=== PATIENT | female | born 1960 | race Caucasian/White ===

== ENCOUNTER 2023-12-12 16:13 | Observation (INO) ==
--- NOTE | 2023-12-12 16:25 | Emergency Department Note ---
Impression & Plan Hypertension, Chest pain ED Provider Note Provider: Devin Bryson MD DATE OF SERVICE: 12/12/2023 CHIEF COMPLAINT: Chest pain, hypertension HISTORY OF PRESENT ILLNESS: Patient is a 63-year-old female history of prior cholecystectomy hysterectomy presenting here today via ambulance. Patient was driving earlier today and was in a bit of a vigorous discussion she reports.Began to experience some central chest pressure and pain from the mid chest epigastrium little bit up towards the shoulders. Did not involve the jaw neck back. No associated nausea but was little short of breath when this is occurring. Thought it might be GERD and took a Pepcid without improvement. As this persisted she pulled over and contacted 911. Presents here via ambulance. Pain evidently lasted about 15 minutes or so and resolved as EMS was arriving. Received several dose of nitroglycerin as well as aspirin around is pain-free at this time. Initial blood pressure for EMS reported be 227 systolic which has improved after the administration of nitroglycerin prior to arrival to the hospital. Patient denies significant shortness of breath, abdominal pain, nausea or vomiting, cough or cold symptoms, fever, or numbness or tingling in the extremities. No syncope or lightheadedness. No trauma reported. Patient reports she has not been to the doctor in more than a decade by report. Patient denies other chest pain but family who arrived shortly afterwards states that she has been complaining of last several days of some intermittent similar pain but this was more severe. Patient states she gets quite anxious in the hospital. Does report a family history of cardiac disease PAST MEDICAL HISTORY: As noted above MEDICATIONS: None SOCIAL HISTORY: Smoker PHYSICAL EXAM: GENERAL: alert and oriented in no acute distress on stretcher Head: normocephalic and atraumatic EYES: No injection, discharge or icterus. EOMI. NECK: Trachea midline. ENT: Mucous membranes pink and moist. LUNGS: Airway patent. No retractions. Breath sounds clear with good air entry bilaterally. HEART: Regular rate and rhythm. No chest wall tenderness ABDOMEN: Soft and non-tender, without guarding or rebound. SKIN: Acyanotic, warm, dry, without rashes EXTREMITIES: Without swelling, tenderness or deformity NEUROLOGICAL: No focal deficits. No aphasia. No facial droop or slurred speech. Ambulatory. EK bpm normal sinus rhythm. No PVC or PAC. No acute ST segment elevation with inferior and anterior T wave inversions with a QTc of 414. In comparison to previous from January 23, 2019 no longer with left bundle branch block notable. CONTINUOUS CARDIAC MONITORING: was ordered and showed a heart rate of 50s to 60s bpm in sinus bradycardia normal sinus rhythm with some PVCs and later what appears to be a change to left bundle branch block. Patient's laboratory studies and imaging reviewed. Differential includes Cardiac ischemia, aortic dissection, pulmonary embolism, pneumothorax, pneumonia, pericarditis, myocarditis, esophageal rupture, GERD, cholecystitis, pancreatitis, musculoskeletal, as well as other pathologies. IMPRESSION/MEDICAL DECISION MAKING: Pain-free upon arrival. Still hypertensive but improved from prior initial encounter with EMS in the 220s systolic by report. Patient did receive aspirin and nitroglycerin prior to arrival. Patient without significant medical care but reports a family history and is a smoker. Has several risk factors. No significant abdominal tenderness but some pain in the epigastrium to the lower chest rating to the shoulders. Concern for possible cardiac etiology obviously. EKG without STEMI but some inferior and particularly anterior T wave inversions. Troponin sent. Electrolyte chemistries TSH ordered as well. Denies significant symptoms currently and low suspicion this represents dissection or PE. She is not hypoxic or medically tachypneic. Cardiac etiology versus possible hypertensive urgency/emergency may be at play with some component of anxiety and stress as well. 1 view chest x-ray per radiology without acute findings besides some slight right hilar prominence. Patient is a smoker and will need follow-up for this to exclude mass or lymph nodes. Doubt again this represents aortic dissection. Blood work without anemia leukocytosis. No significant actually abnormal signs of renal dysfunction. No evidence of LFT abnormalities or pancreatitis based on labs. Troponin returns normal. Blood pressure in the 180s systolic. Given the relative bradycardia will give a dose of IV hydralazine. Again a very concerning story with poor follow-up options at this time and uncontrolled hypertension. Discussed with the patient and she was agreeable to stay for further workup given the chest pain and hypertensive urgency. Hospitalist team was consulted. DIAGNOSIS: Chest pain, hypertensive urgency DISPOSITION: Hospitalist will evaluate Patient was agreeable with this plan. Past Med/Surg History Problem List Chest pain (Acute) Hypertension (Acute) Unstable angina History of hysterectomy History of cholecystectomy Medical History No pertinent past medical history Social History Smoking Status: Current every day smoker Tobacco Type: Cigarettes Cigarettes Per Day: 10; Do You Dip or Chew Tobacco: No; Tobacco Cessation Education Requested by Patient: No Hx Alcohol Use: No Hx Substance Use: No Preferred Language: Wallisian Communication Ability: Effective Floodplain Manager Required: No Beliefs That Will Affect Care: None Current Living Situation: Spouse and Family Current Living Situation Comment: At home with and [id number] Other Information That Helps Us Care for You: No Feels Safe at Home: Yes Safety Concerns: Feels Safe At This Time Assistive Devices: Denture - Upper and Glasses Allergies Allergies Allergy/AdvReac Type Severity Reaction Status Date / Time No Known Allergies Allergy Unverified 12/12/23 18:01 Home Meds Home Medications Medication Instructions Recorded Confirmed acetaminophen 500 mg tablet 1,000 mg PO Q6H PRN Pain 01/23/19 12/12/23 (Tylenol Extra Strength) famotidine 20 mg tablet (Pepcid) 20 mg PO BID PRN Heartburn 12/12/23 12/12/23 Results & Data (ED) Vital Signs Vital Signs - 24 hr 12/12/23 16:28 12/12/23 17:04 12/12/23 18:06 Temperature 37 C Temperature Source Oral Pulse Rate 59 L 59 L Pulse Rate [Apical] 59 L Respiratory Rate 20 18 Respiratory Effort / Characteristics Non-Labored Spontaneous Non-Labored Spontaneous Respiratory Depth Normal Normal Respiratory Pattern Regular Regular Blood Pressure 171/97 H Blood Pressure [Right Arm] 182/105 H Blood Pressure Mean 121 Blood Pressure Mean [Right Arm] 130 Pulse Oximetry 98 98 Oxygen Delivery Method Room Air Room Air Sepsis Recent Fever Within 48 Hours No Sepsis New/Unexplained Change in Mental Status No Sepsis Action Taken by Nursing No Action Required Laboratory Data 12/12/23 16:38 12/12/23 16:38 Lab Results 12/12/23 Range/Units 16:38 WBC 5.86 (4.8-10.8) K/ul RBC 4.56 (4.20-5.40) M/uL Hgb 12.8 (12.0-16.0) g/dl Hct 39.0 (37.0-47.0) % MCV 85.5 (80.0-100.0) fL MCH 28.1 (25.0-34.0) pg MCHC 32.8 (32.0-36.0) g/dL RDW Std Deviation 42.2 (36.4-46.3) fL RDW Coeff of Cecilia 13.5 (11.5-14.5) % Plt Count 167 (130-400) K/uL MPV 10.3 (9.4-12.4) fL Immature Gran % (Auto) 0.7 % Neut % (Auto) 48.6 % Lymph % (Auto) 40.8 % [place] % (Auto) 7.0 % Eos % (Auto) 2.2 % Baso % (Auto) 0.7 % Neut # (Auto) 2.85 (1.40-6.50) K/uL Lymph # (Auto) 2.39 (1.20-3.40) K/uL [place] # (Auto) 0.41 (0.11-0.59) K/uL Eos # (Auto) 0.13 (0.00-0.50) K/uL Baso # (Auto) 0.04 (0.00-0.20) K/uL Immature Gran # (Auto) 0.04 (0.01-0.20) K/uL PT 10.8 (9.0-12.0) Seconds INR 1.0 (0.9-1.1) Sodium 135 L (136-145) mmol/L Potassium 3.6 (3.5-5.1) mmol/L Chloride 104 (98-107) mmol/L Carbon Dioxide 26 (21-32) mmol/L Anion Gap 5 (3-11) BUN 10 (6-23) mg/dl Creatinine 0.64 (0.6-1.2) mg/dl Est Cr Clr Drug Dosing 89.6 ml/min Est GFR ( Amer) 109.3 ml/min Est GFR (Non-Af Amer) 94.3 ml/min BUN/Creatinine Ratio 15.6 (10-20) Glucose 84 (70-99(Fasting)) mg/dl Calcium 9.4 (8.6-10.3) mg/dl Total Bilirubin 0.3 (0.2-1.0) mg/dl AST 17 (13-39) U/L ALT 12 (7-52) U/L Alkaline Phosphatase 94 (34-104) U/L Troponin I High Sens 3.6 (0-14) pg/ml Total Protein 6.3 (6.0-8.3) gm/dl Albumin 4.0 (3.4-5.0) gm/dl Globulin 2.3 L (2.5-4.0) gm/dl Albumin/Globulin Ratio 1.7 (0.9-2) Lipase 47 (11-82) U/L TSH 1.829 (0.300-4.500) uIu/ml Administered Medications Heparin Sodium/Dextrose (Heparin Sodium/Dextrose) 25,000 units in 500 mls @ 16 mls/hr IV .Q24H EDMUNDO; Protocol Stop: 01/11/24 19:14 Last Admin: 12/12/23 19:41 Dose: 800 units/hr, 16 mls/hr Documented By: CHRISTAL Co-signed By: RAAD Nitroglycerin (Nitroglycerin 2% Ointment 30gm Tube) 0.5 inch EXT Q6 EDMUNDO Stop: 01/11/24 19:14 Last Admin: 12/12/23 19:46 Dose: 0.5 inch Documented By: CHRISTAL Discontinued Medications Amlodipine Besylate (Amlodipine Besylate 5 Mg Tab) 5 mg PO NOW ONE Stop: 12/12/23 19:07 Last Admin: 12/12/23 19:46 Dose: 5 mg Documented By: CHRISTAL Heparin Sodium (Porcine) (Heparin Sod (Porcine) 1000 Unit/Ml) 4,000 units IV NOW ONE Stop: 12/12/23 19:16 Last Admin: 12/12/23 19:45 Dose: 4,000 units Documented By: CHRISTAL Co-signed By: RAAD Hydralazine HCl (Hydralazine Hcl 20 Mg/Ml Vial) 5 mg IV NOW ONE Stop: 12/12/23 17:46 Last Admin: 12/12/23 18:04 Dose: 5 mg Documented By: HOLLIE Imaging Data Radiologist's Impression: Chest X-Ray 12/12/23 16:17 XR chest 1V portable HISTORY: Chest pain, nonspecific COMPARISON: None. FINDINGS: No pneumothorax. No pleural effusions. Hazy appearance to the lung bases is likely due to overlapping soft tissue. Otherwise, no focal lung consolidations to suggest pneumonia. Evidence for pulmonary edema. The cardiac silhouette is top normal in size. There are calcifications within the aortic knob. Mild right hilar prominence. IMPRESSION: 1. Mild right hilar prominence. This could be projectional. Follow-up nonemergent chest CT recommended to exclude right hilar lymphadenopathy. 2. Otherwise, no acute process within the chest ACT 112: Negative or not required by law. Electronically signed by: Robson Bain M.D. 12/12/2023 4:54 PM Discharge Plan Visit Data Chief Complaint: Chest Pain ED Provider: Devin Bryson Discharge Problem: Hypertension, Chest pain Patient Disposition: Admitted As Inpatient Discharge Instructions Interventions: ED Discharge Assessment Last Done: 12/12/23 20:09 Discharge Problem: Hypertension Qualifiers: Hypertension type: unspecified Qualified Code(s): I10 - Essential (primary) hypertension
--- NOTE | 2023-12-12 16:55 | XRay Report ---
XR chest 1V portable HISTORY: Chest pain, nonspecific COMPARISON: None. FINDINGS: No pneumothorax. No pleural effusions. Hazy appearance to the lung bases is likely due to o verlapping soft tissue. Otherwise, no focal lung consolidations to suggest pneumonia. Evidence for pu lmonary edema. The cardiac silhouette is top normal in size. There are calcifications within the aort ic knob. Mild right hilar prominence. IMPRESSION: 1. Mild right hilar prominence. This could be projectional. Follow-up nonemergent chest CT recommende d to exclude right hilar lymphadenopathy. 2. Otherwise, no acute process within the chest ACT 112: Negative or not required by law. Electronically signed by: Robson aBin M.D. 12/12/2023 4:54 PM
[2023-12-12 17:02] LABS: Basophils # (auto) 0.04 K/uL (0.00-0.20); Basophils % (auto) 0.7 %; Eosinophils # (auto) 0.13 K/uL (0.00-0.50); Eosinophils % (auto) 2.2 %; Hemoglobin 12.8 g/dl (12.0-16.0); Immature Granulocytes # (auto) 0.04 K/uL (0.01-0.20); Immature Granulocytes % (auto) 0.7 %; Lymphocytes # (auto) 2.39 K/uL (1.20-3.40); Lymphocytes % (auto) 40.8 %; Mean Corpuscular Hemoglobin 28.1 pg (25.0-34.0); Mean Corpuscular Hgb Conc 32.8 g/dL (32.0-36.0); Mean Corpuscular Volume 85.5 fL (80.0-100.0); Mean Platelet Volume 10.3 fL (9.4-12.4); Monocytes # (auto) 0.41 K/uL (0.11-0.59); Neutrophils # (auto) 2.85 K/uL (1.40-6.50); Neutrophils % (auto) 48.6 %; Platelet Count 167 K/uL (130-400); RDW Coefficient of Variation 13.5 % (11.5-14.5); RDW Standard Deviation 42.2 fL (36.4-46.3); Red Blood Count 4.56 M/uL (4.20-5.40); White Blood Count 5.86 K/ul (4.8-10.8)
[2023-12-12 17:12] LABS: Albumin Globulin Ratio 1.7 (0.9-2); BUN Creatinine Ratio 15.6 (10-20); Bilirubin,Total 0.3 mg/dl (0.2-1.0); Calcium 9.4 mg/dl (8.6-10.3); Creatinine Clr Calc Pharmacy 89.6 ml/min; Est GFR (African American) 109.3 ml/min; Est GFR (Non-African American) 94.3 ml/min; Globulin 2.3 gm/dl (2.5-4.0); Potassium 3.6 mmol/L (3.5-5.1); Total Protein 6.3 gm/dl (6.0-8.3)
[2023-12-12 17:19] LABS: Troponin I High Sensitivity 3.6 pg/ml (0-14)
[2023-12-12 17:21] LABS: Prothrombin Time 10.8 Seconds (9.0-12.0)
[2023-12-12 17:26] LABS: Thyroid Stimulating Hormone 1.829 uIu/ml (0.300-4.500)
[2023-12-12] MEDS: hydrALAZINE HCL 20 MG/ML VIAL IV ONE (18:04)
--- NOTE | 2023-12-12 18:07 | History & Physical Report ---
Date of Service December 12, 2023 Assessment & Plan (1) Unstable angina: Plan: - ischemia vs LVH - patient presented with chest pain at rest that began while drive and arguing with someone - BP on admission elevated - Given aspirin via SHLOMO - CXR negative - EKG showed T wave inversions - troponin negative (3.6) on admission - Discussed with international sourcing manager university controller - recommended heparin overnight - serial enzymes, EKG in AM, Echo in AM - discuss with Dr. Phipps or Dr. Olmos in AM - fasting lipid panel in AM - Heparin bolus given on admission (2) Hypertension: Plan: - BP high on admission, reported SBP in 200s - IV hydralazine 5 mg given on admission Plan VTE ppx: SCDs and heparinized Diet: Heart healthy Code status: Full Code Admission and Anticipated Discharge Date Admission Date: 12/12/23 History of Present Illness Chief Complaint: chest pain Primary Care Provider: NO PCP Patient is a 63 y/o female with no PMH because she hasn't been seen by a doctor in over 10 years. She presents with left sided burning chest pain that began at rest while drive today, although her BP was likely elevated because she was in an active argument with someone. The pain radiated to her right shoulder and lasted for about 10 minutes. The quality of this pain is different for her because she was diaphoretic and dyspneic with it. She took Pepcid to help with it, but it provided no relief. She pulled over to call the ambulance to come in and was given Aspirin. She has had prior episode of angina for the past few years and stated that they happen a lot when asked to quantify how often. She is a chronic smoker - between 1/2-1 ppd for the past 32 years. She stated she does not have the best diet and eats whatever she wants, likely with high sodium. She does have frequent migraines. Patient denies headache, dizziness, lightheadedness, vision changes, rhinorrhea, sore throat, cough, sputum production, dyspnea, dyspnea on exertion, chest pain, abdominal pain, nausea, vomiting, diarrhea, constipation, dysuria, edema, numbness, tingling. Her only home medication is OTC Pepcid as needed for GERD. She does not use oxygen, cpap/bipap at baseline. She wishes to be full code at this time. Allergies Allergy/AdvReac Type Severity Reaction Status Date / Time No Known Allergies Allergy Unverified 12/12/23 18:01 Home Medications Medication Instructions Recorded Confirmed Type acetaminophen 500 mg tablet 1,000 mg PO Q6H PRN Pain 01/23/19 12/12/23 History (Tylenol Extra Strength) famotidine 20 mg tablet (Pepcid) 20 mg PO BID PRN Heartburn 12/12/23 12/12/23 History Past Med/Surg History Problem List Hypertension Unstable angina History of hysterectomy History of cholecystectomy Medical History No pertinent past medical history Social History Smoking Status: Current every day smoker Tobacco Type: Cigarettes Preferred Language: Armenian Feels Safe at Home: Yes Review of Systems Review of Systems: See HPI Physical Exam Physical Exam: The patient is awake, alert and oriented 3, well developed and well nourished, normocephalic and atraumatic, in no acute distress. Non-toxic appearing. HEENT- EOMI, mucous membranes moist. Hearing grossly intact. Heart-normal S1 and S2. No murmurs, rubs or gallops. Lungs-clear bilaterally, no respiratory distress, no accessory muscle use. Abdomen-normal bowel sounds and soft. No ascites noted. Non-tender. Extremities- no clubbing, cyanosis, or edema. Rheumatologic-normal range of motion. Psychiatric-normal affect. Results & Data Results & Data Vital Signs (Past 12 Hours) Vital Signs Temp Pulse Pulse Resp BP BP Pulse Ox 12/12/23 18:06 59 L 18 182/105 H 98 12/12/23 17:04 59 L 12/12/23 16:28 37 C 59 L 20 171/97 H 98 O2 Del Method 12/12/23 18:06 Room Air 12/12/23 17:04 12/12/23 16:28 Room Air Code Status & VTE Plan Code Status Full Code VTE Prophylaxis Plan VTE Prophylaxis will be ordered: Yes Supervising Physician Co-Signing Physician Notes Patient seen and examined, chart reviewed, case discussed with Melanie Quiñonez PA-C and I agree with the assessment and plan as above except as otherwise noted Labs and images reviewed 63-year-old female with chronic tobacco use who does not follow with a physician who presents with an episode of chest pain and diaphoresis which had onset while driving and having a stressful conversation. She has had intermittent episodes of chest pain over many years however this episode was different and that it was associated with shortness of breath and sweating. She was hypertensive on arrival to ER. Her chest pain completely resolved with antihypertensive treatment. EKG does show T wave inversions, troponin is negative however her episode of pain lasted less than 20 minutes. Lungs are clear, heart rate is regular. Given onset of chest pain at rest and with proceeding chest pain and increased risk with tobacco abuse agree with heparinization. Cardiology consulted. Trelegy given for blood pressure control. Additional beta-radha limited by pulse of 5960. Renal function is normal. No history of DM. Nitro paste added, and started on amlodipine p.o. troponin trended overnight, echo pending. Agree with above. DDx includes hypertensive chest pain, unstable angina. PG Care Time/CCT Total # of Minutes Spent Total Time Spent with Patient: Total time spent is greater than 50% in coordination of care (as documented) at patient's floor/unit and/or counseling patient: Coding Level of Care Code None Diagnoses Unstable angina I20.0 Hypertension I10
[2023-12-12] MEDS ORDERED: Heparin IV Adult Wt-Based Low-Dose w/ INITIAL Bolus Protocol IV SCH (19:08)
--- NOTE | 2023-12-12 19:18 | Billing Data ---
Date of Service December 12, 2023 Coding Level of Care Code 15374 INT INP/OBS CARE
[2023-12-12] MEDS: HEPARIN SODIUM/DEXTROSE 25,000 UNITS/500 ML BAG IV SCH (19:41)
[2023-12-12] MEDS: HEPARIN SOD (PORCINE) 1000 UNIT/ML IV ONE (19:45)
[2023-12-12] MEDS: NITROGLYCERIN 2% OINTMENT 30GM TUBE EXT SCH (19:46)
[2023-12-12] MEDS: amLODIPine BESYLATE 5 MG TAB PO ONE (19:46)
[2023-12-12] MEDS ORDERED: FAMOTIDINE 20 MG TAB PO PRN (20:38)
[2023-12-12] MEDS: ACETAMINOPHEN 500 MG TAB PO PRN (23:52)
[2023-12-13 02:02] LABS: Hematocrit (blood only) 38.9 % (37.0-47.0); Hemoglobin 12.7 g/dl (12.0-16.0); Mean Corpuscular Hemoglobin 27.7 pg (25.0-34.0); Mean Corpuscular Hgb Conc 32.6 g/dL (32.0-36.0); Mean Corpuscular Volume 84.7 fL (80.0-100.0); Mean Platelet Volume 10.3 fL (9.4-12.4); Platelet Count 166 K/uL (130-400); RDW Coefficient of Variation 13.7 % (11.5-14.5); RDW Standard Deviation 42.5 fL (36.4-46.3); Red Blood Count 4.59 M/uL (4.20-5.40); White Blood Count 6.62 K/ul (4.8-10.8)
[2023-12-13 02:21] LABS: BUN Creatinine Ratio 15.5 (10-20); Calcium 9.6 mg/dl (8.6-10.3); Chol HDL Ratio 2.7 (0-5); Creatinine Clr Calc Pharmacy 98.8 ml/min; Est GFR (African American) 112.9 ml/min; Est GFR (Non-African American) 97.4 ml/min; Potassium 3.9 mmol/L (3.5-5.1)
[2023-12-13 02:27] LABS: Troponin I High Sensitivity 3.1 pg/ml (0-14)
[2023-12-13 02:40] LABS: ANTI-Xa, UFH(UnfractionatedHep 0.27 IU/ml (0.3-0.7)
[2023-12-13] MEDS: hydrALAZINE HCL 20 MG/ML VIAL IV PRN (03:09)
--- NOTE | 2023-12-13 08:21 | Hospitalist Progress Note ---
Date of Service December 13, 2023 Assessment & Plan (1) Unstable angina: Plan: - symptoms are concerning for ischemia - 30+ pack year smoking history and no PCP for 10+ years - patient presented with chest pain at rest that began while driving and arguing with someone; along with diaphoresis and dyspnea - Given aspirin via SHLOMO - CXR negative and troponin negative (3.6) on admission - Discussed with plant operations manager director of guidance in public [employer] on admission - recommended heparin 12/12/23 - serial enzymes, EKG in AM, Echo stress test in AM, and see Dr. Phipps in AM - Heparin bolus given on admission - EKG on admission showed T wave inversions in anteior leads - troponin trended, WNL - lipid panel, lipase, and TSH WNL - cardiology consulted, proceeding with cardiac catheterization 12/13/23 (2) Hypertension: Plan: - BP high on admission and continues to be elevated - IV hydralazine 5 mg given on admission - amlodipine daily started and IV hydralazine 5 mg Q6 prn Plan VTE ppx: SCDs and heparin Diet: Heart healthy Code status: Full Code Admission and Anticipated Discharge Date Admission Date: December 12, 2023 Supervising Physician Co-Signing Physician Notes Patient was seen and examined independently I discussed the case with Melanie DELACRUZ I reviewed pertinent past medical social family history and also the plan of care and agree with the plan of care. Patient was seen in consultation with cardiology felt that her story sounded to be unstable angina she did have some dynamic EKG changes she was taken to the [facility] in the afternoon of 12/12. Patient reported stent placed in diagonal 1 Patient is still on aspirin Plavix therapy atorvastatin and we will institute metoprolol in the a.m. of 12/13 Any exceptions will be noted below Subjective Patient doing well with no acute events overnight. She has not had chest pain since before she arrived to ED. She currently denies chest pain, dizziness, dyspnea, cough, numbness, tingling, and edema. She was seen by cardiology this morning who recommended she go to the slab worker rather than the stress test. She stated that her only concern is getting food after the slab worker today. Review of Systems Review of Systems: See HPI Physical Exam Physical Exam: The patient is awake, alert and oriented 3, well developed and well nourished, normocephalic and atraumatic, in no acute distress. Non-toxic appearing. HEENT- EOMI, mucous membranes moist. Hearing grossly intact. Heart-normal S1 and S2. No murmurs, rubs or gallops. Lungs-clear bilaterally, no respiratory distress, no accessory muscle use. Abdomen-normal bowel sounds and soft. No ascites noted. Non-tender. Extremities- no clubbing, cyanosis, or edema. Rheumatologic-normal range of motion. Psychiatric-normal affect. Results & Data Results & Data Vital Signs (Past 12 Hours) Vital Signs Temp Pulse Pulse Pulse Resp BP Pulse Ox 12/13/23 07:07 37.3 C 60 16 177/91 H 98 12/13/23 02:51 36.6 C 56 L 18 189/94 H 97 12/12/23 23:08 36.7 C 55 L 18 175/90 H 98 12/12/23 22:02 53 L 12/12/23 20:38 58 L 12/12/23 20:38 36.9 C 69 16 233/125 H 99 12/12/23 20:38 O2 Del Method 12/13/23 07:07 Room Air 12/13/23 02:51 Room Air 12/12/23 23:08 Room Air 12/12/23 22:02 12/12/23 20:38 12/12/23 20:38 Room Air 12/12/23 20:38 Room Air PG Care Time/CCT Total # of Minutes Spent Total Time Spent with Patient: Total time spent is greater than 50% in coordination of care (as documented) at patient's floor/unit and/or counseling patient: Coding Level of Care Code None Diagnoses Unstable angina I20.0 Hypertension I10 Hypertension type: unspecified (2) Hypertension Hypertension type: unspecified Qualified Code(s): I10 - Essential (primary) hypertension
[2023-12-13] MEDS: amLODIPine BESYLATE 5 MG TAB PO SCH (09:48)
[2023-12-13 09:59] LABS: ANTI-Xa, UFH(UnfractionatedHep 0.25 IU/ml (0.3-0.7)
--- NOTE | 2023-12-13 10:57 | Cardiology Consultation ---
Date of Consultation December 13, 2023 Assessment & Plan (1) Chest pain: -Her symptoms are concerning for coronary ischemia. -She demonstrated dynamic anterior T wave changes. -She has numerous risk factors for coronary artery disease. -Proceed with diagnostic cardiac catheterization. (2) Hypertension: -Will likely need to titrate antihypertensive therapy. History of Present Illness Attending Physician: Taz Sparrow MD History of Present Illness Mrs. De Anda is a 63-year-old female admitted yesterday with a chest pain syndrome. This consultation was ordered to assist in her cardiac management. The patient was in her usual state of health until yesterday afternoon. She was arguing with her while driving in the car. She developed substernal chest pressure which radiated to her right shoulder. There was associated shortness of breath and diaphoresis. Her symptoms lasted approximately 10 minutes. The patient explains that this has happened numerous times previously and typically occurs with vigorous physical activity or emotional stress. Her evaluation in the emergency room noted some anterior ST and T wave changes. Her initial high-sensitivity troponin was normal. She was placed on intravenous heparin and admitted to the hospital. Currently, patient is resting comfortably in bed and without complaints. We have discussed the need to proceed with a cardiac catheterization. The patient and her family understand and agree. Past medical and surgical history 1. Hypertension 2. GERD 3. Migraine headaches 4. Hysterectomy 5. Cholecystectomy Social history and lives with her Smokes 1/2 to 1 pack of cigarettes daily Social alcohol Family history No early coronary artery disease. His sister at 60 while awaiting a heart transplant. Review of systems A 10 point review of systems undertaken and negative except that scribed above. Allergies Allergy/AdvReac Type Severity Reaction Status Date / Time No Known Allergies Allergy Unverified 12/12/23 18:01 Home Medications Medication Instructions Recorded Confirmed Type acetaminophen 500 mg tablet 1,000 mg PO Q6H PRN Pain 01/23/19 12/12/23 History (Tylenol Extra Strength) famotidine 20 mg tablet (Pepcid) 20 mg PO BID PRN Heartburn 12/12/23 12/12/23 History Patient History Medical History No pertinent past medical history Social History Smoking Status: Current every day smoker Tobacco Type: Cigarettes Cigarettes Per Day: 10; Do You Dip or Chew Tobacco: No; Tobacco Cessation Education Requested by Patient: No Hx Alcohol Use: No Hx Substance Use: No Preferred Language: Urdu Communication Ability: Effective Street Openings Inspector Required: No Beliefs That Will Affect Care: None Current Living Situation: Spouse and Family Current Living Situation Comment: At home with and [id number] Other Information That Helps Us Care for You: No Feels Safe at Home: Yes Safety Concerns: Feels Safe At This Time Assistive Devices: Denture - Upper and Glasses Physical Exam Physical Exam: In general this is a well-developed well-nourished white female in no acute distress. HEENT exam is negative. Neck reveals normal carotid upstrokes without bruits. Jugular venous pressure is flat at 90. There is no thyromegaly. Cardiovascular exam reveals a regular rhythm with distant heart sounds. No obvious murmurs. Lungs are clear without rales, rhonchi, or wheezes. Abdomen is soft without bruits. Extremities reveal intact radial artery pulses bilaterally. There is no peripheral edema. Results & Data Vital Signs (Past 12 Hours) Vital Signs Temp Pulse Pulse Resp BP Pulse Ox O2 Del Method 12/13/23 10:19 36.4 C L 60 17 166/91 H 97 Room Air 12/13/23 07:07 37.3 C 60 16 177/91 H 98 Room Air 12/13/23 02:51 36.6 C 56 L 18 189/94 H 97 Room Air 12/12/23 23:08 36.7 C 55 L 18 175/90 H 98 Room Air PG Care Time/CCT Total # of Minutes Spent Total Time Spent with Patient: Total time spent is greater than 50% in coordination of care (as documented) at patient's floor/unit and/or counseling patient: Coding Level of Care Code 79424 IN/OBS CONSULT LVL 5,80M Diagnoses Chest pain R07.9 Hypertension I10 Hypertension type: unspecified (2) Hypertension Hypertension type: unspecified Qualified Code(s): I10 - Essential (primary) hypertension
--- NOTE | 2023-12-13 14:24 | Electrocardiogram Report ---
Test Reason : Blood Pressure : */* mmHG Vent. Rate : 60 BPM Atrial Rate : 60 BPM P-R Int : 116 ms QRS Dur : 94 ms QT Int : 414 ms P-R-T Axes : 2 46 103 degrees QTcB Int : 414 ms Normal sinus rhythm Abnormal ECG When compared with ECG of 23-Jan-2019 15:18, Left bundle branch block is no longer Present Confirmed by Jose L Phipps ([id number]) on 12/13/2023 2:24:14 PM Referred By: REFERRED SELF Confirmed By: Jose L Phipps
--- NOTE | 2023-12-13 14:38 | Electrocardiogram Report ---
Test Reason : Blood Pressure : */* mmHG Vent. Rate : 63 BPM Atrial Rate : 63 BPM P-R Int : 120 ms QRS Dur : 98 ms QT Int : 436 ms P-R-T Axes : 9 47 88 degrees QTcB Int : 446 ms Normal sinus rhythm Nonspecific T wave abnormality Abnormal ECG When compared with ECG of 12-Dec-2023 16:25, (unconfirmed) T wave inversion no longer evident in Lateral leads Confirmed by Jose L Phipps ([id number]) on 12/13/2023 2:38:09 PM Referred By: REFERRED SELF Confirmed By: Jose L Phipps
[2023-12-13] MEDS: niCARdipine HCL INJ 2.5 MG/ML 10 ML AMP ONE (15:01)
[2023-12-13] MEDS: NITROGLYCERIN/D5W 100MCG/ML 20ML SYR ONE (15:01)
[2023-12-13] MEDS: IODIXANOL (VISIPAQUE) 320 MG/ML 100ML IV ONE (15:02)
[2023-12-13] MEDS: MIDAZOLAM HCL 1 MG/ML 2ML VIAL ONE ×2 (15:55→16:00)
[2023-12-13] MEDS: HEPARIN (PORCINE) 1000 UNIT/ML 10 ML (CATH LAB USE ONLY) ONE (15:56)
[2023-12-13] MEDS: OPTIRAY 350 ONE (15:56)
[2023-12-13] MEDS: fentaNYL citrate PF 100 MCG/2 ML VIAL ONE (15:56)
[2023-12-13] MEDS: ASPIRIN 81 MG CHEW ONE (16:00)
[2023-12-13] MEDS: CLOPIDOGREL BISULFATE 300 MG TAB ONE (16:00)
--- NOTE | 2023-12-13 16:51 | Billing Data ---
Date of Service December 13, 2023 Coding Level of Care Code 08086 INT INP/OBS CARE
[2023-12-13] MEDS ORDERED: hydrALAZINE HCL 20 MG/ML VIAL IV PRN (16:57)
[2023-12-13] MEDS: METOPROLOL TARTRATE 25 MG TAB PO ONE (17:17)
--- NOTE | 2023-12-13 17:32 | Pre Anesthesia Assessment ---
Date of Service December 13, 2023 Pre Sedation Assessment Vital Signs Temp Pulse Pulse Pulse Resp BP BP 12/13/23 17:28 60 17 196/79 H 12/13/23 17:15 67 17 181/94 H 12/13/23 17:01 53 L 20 140/87 12/13/23 16:51 55 L 20 169/71 H 12/13/23 16:31 97.7 F 52 L 20 171/90 H 12/13/23 16:02 57 L 18 156/95 H 12/13/23 15:50 63 18 162/90 H 12/13/23 14:33 71 18 148/96 H 12/13/23 10:19 97.5 F L 60 17 166/91 H 12/13/23 07:07 99.1 F 60 16 177/91 H 12/13/23 02:51 97.9 F 56 L 18 189/94 H 12/12/23 23:08 98.1 F 55 L 18 175/90 H 12/12/23 22:02 53 L 12/12/23 20:38 58 L 12/12/23 20:38 98.4 F 69 16 233/125 H 12/12/23 20:38 12/12/23 20:09 12/12/23 18:06 59 L 18 182/105 H Pulse Ox O2 Del Method 12/13/23 17:28 98 Room Air 12/13/23 17:15 97 Room Air 12/13/23 17:01 95 Room Air 12/13/23 16:51 96 Room Air 12/13/23 16:31 97 Room Air 12/13/23 16:02 96 Room Air 12/13/23 15:50 95 Room Air 12/13/23 14:33 96 Room Air 12/13/23 10:19 97 Room Air 12/13/23 07:07 98 Room Air 12/13/23 02:51 97 Room Air 12/12/23 23:08 98 Room Air 12/12/23 22:02 12/12/23 20:38 12/12/23 20:38 99 Room Air 12/12/23 20:38 Room Air 12/12/23 20:09 Room Air 12/12/23 18:06 98 Room Air Cardiovascular + regular rate Respiratory + respiratory effort normal Pre-Sedation Airway Assessment Smoking Status: Current every day smoker Hx Sleep Apnea: No Short, Thick Neck: No Thyromental Distance: > or= 3.5 Finger Breadths Oral Cavity: + WNL Mallampati Class: III ASA: ASA2 NPO Status Date of Last Intake of Fluids: 12/13/23 Time of Last Intake of Fluids: 08:00 Date of Last Intake of Solid Food: 12/12/23 Time of Last Intake of Solid Foods: 09:00 Procedure Planning Contraindications for Sedation: none Current Medications Reviewed: Yes Notes The planned sedation has been discussed with the patient. Informed Consent was obtained. I have identified the patient, determined the appropriateness of sedation and have assessed the patient immediately prior to the procedure. All medicine(s) and interventions are by my order.
--- NOTE | 2023-12-13 17:32 | Post Anesthesia Assessment ---
Date of Service December 13, 2023 Post Sedation Assessment Vital Signs Temp Pulse Pulse Pulse Resp BP BP 12/13/23 17:28 60 17 196/79 H 12/13/23 17:15 67 17 181/94 H 12/13/23 17:01 53 L 20 140/87 12/13/23 16:51 55 L 20 169/71 H 12/13/23 16:31 97.7 F 52 L 20 171/90 H 12/13/23 16:02 57 L 18 156/95 H 12/13/23 15:50 63 18 162/90 H 12/13/23 14:33 71 18 148/96 H 12/13/23 10:19 97.5 F L 60 17 166/91 H 12/13/23 07:07 99.1 F 60 16 177/91 H 12/13/23 02:51 97.9 F 56 L 18 189/94 H 12/12/23 23:08 98.1 F 55 L 18 175/90 H 12/12/23 22:02 53 L 12/12/23 20:38 58 L 12/12/23 20:38 98.4 F 69 16 233/125 H 12/12/23 20:38 12/12/23 20:09 12/12/23 18:06 59 L 18 182/105 H Pulse Ox O2 Del Method 12/13/23 17:28 98 Room Air 12/13/23 17:15 97 Room Air 12/13/23 17:01 95 Room Air 12/13/23 16:51 96 Room Air 12/13/23 16:31 97 Room Air 12/13/23 16:02 96 Room Air 12/13/23 15:50 95 Room Air 12/13/23 14:33 96 Room Air 12/13/23 10:19 97 Room Air 12/13/23 07:07 98 Room Air 12/13/23 02:51 97 Room Air 12/12/23 23:08 98 Room Air 12/12/23 22:02 12/12/23 20:38 12/12/23 20:38 99 Room Air 12/12/23 20:38 Room Air 12/12/23 20:09 Room Air 12/12/23 18:06 98 Room Air Recovery Score Activity: Moves 4 extremities Respiration: Deep Breath/Cough Circulation: +/-20% PreAnes Value Consciousness: Fully Awake Oxygen Saturation: O2 needed for >90% Discharge Sedation Level of Care: Fast Track Phase II Post Sedation Plan On clinical assessment, the patient appears to have tolerated the sedation without complications. Patient is recovering as anticipated. Patient will continue to be monitored by nursing and may be discharged when sedation discharge criteria are met per below protocol. Upon Completions of procedure up to 15 minutes continue every 5 minute vital signs and the P.A.R. score; then discharge to a Phase I or Fast Track to Phase II per the following guidelines: * Discharge Patient to appropriate Phase II area if PAR is 8 or greater or return to pre- procedure baseline. The post - procedure orders will be as directed. * If PAR score is less than 8 or not return to pre-procedure baseline then patient will follow Phase I monitoring till PAR is reached for Phase II. The Phase I may be done in procedure room or may call to secure a Phase I area. * If naloxone or flumazenil are used for reversal, hold in Phase I for continued monitoring from when last reversal dose was given for a minimum of 60 minutes or longer pending the nurse and/or physician discretion of patient condition before discharge to Phase II. Please call the Sedation Physician to re-evaluate and complete post-note for discharge to Phase II area. Do NOT discharge from procedure sedation or Phase 1 until post- sedation evaluation note is complete by procedure /sedation MD Sedation Discharge Instructions to be given to the patient at discharge to home.
--- NOTE | 2023-12-13 17:46 | Cardiac Catheterization ---
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 Cardiac Status Clinical evaluation leading to the procedure CAD Presenation: Unstable angina Anginal Classification: CCS III Diagnostic Physicians Name: Bautista Olmos MD Closure Device Recommendations: PCI without planned CABG Cardiac Cath Procedure Full Procedure Date December 13, 2023 Pre-Procedure Diagnosis Pre-Procedure Diagnosis: Angina AUC Score AUC Score: 7 Post-Procedure Diagnosis Post-Procedure Diagnosis: Severe CAD, Successful PCI and Normal Intracardiac Pressures Procedure(s) Performed Procedure(s) Performed: Coronary Angiography, Left Heart Cath and Drug Eluting Stent Computer Systems Technician Bautista Olmos MD Microbiology Lab Assistant(s) Anju Estimated Blood Loss Estimated Blood Loss: 15 Medication(s) Medication(s): Clopidogrel, Fentanyl, Heparin, Lidocaine 1%, Nicardipine, Nitroglycerin and Versed Summary of Findings Indication: Suspected ACS, abnormal ECG, ASCVD risk factors Access: 6 Fr slender right radial artery Catheters: Depue, diagnostic JR4 EBU 3.5 guide Findings: LM -normal caliber, no significant disease LAD -medium caliber, calcified, proximal luminal irregularities, 30% mid segment disease, distal vessel without significant disease and wraps around apex. Medium D2 with 70% ostial disease and 95% proximal disease with [place] II-III flow distally. Small D3 with 80% ostial stenosis. Circumflex -large caliber, 30% mid segment disease. Large OM 2 without significant disease. Medium OM 3 with proximal luminal irregularities. Left PLB without significant disease. RCA -dominant, 100% proximal chronic total occlusion. RPDA, distal RCA fills retrograde via [id number] collaterals. LVEDP -13 -- PCI -- Antithrombotic therapy: Heparin, clopidogrel Procedure: Left main cannulated with EBU 3.5 guide Pre-procedure flow [place] 2-3 Security Auditor 50 wire passed across lesion into distal second diagonal Prowater wire placed into distal LAD Proximal D2 lesion predilated with 2.0 compliant balloon Dilated lesion stented with 2.25 x 26 mm Robert drug-eluting stent extending back to diagonal ostium Stent post-dilated with 2.5 noncompliant balloon IC vasodilators administered for spasm Post procedure [place] 3 flow, stent well expanded with minimal residual stenosis and no apparent cardiac complications. Arterial Closure: TR band Summary: 1. Severe multi-vessel coronary artery disease -100% proximal RCA chronic total occlusion with [id number] collaterals Medium D2 with 95% proximal stenosis. Small D3 with 80% ostial stenosis 2. Normal intracardiac filling pressure 3. Successful PCI of proximal second diagonal with single drug-eluting stent (2.25 x 26 mm [place]; postdilated with 2.5 NC). 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 Hemodynamics Rest Ao:: 170/98/126 Final Ao: 151/77/125 LV: 197/13 Recommendations Recommendations: PCI without planned CABG Radiation Exposure (mGy) 1718 Contrast (mls) 150 Anesthesia Moderate 1409-3974 Procedural Complication(s) None Disposition PCU I attest to the content of the Intraoperative Record and any orders documented therein. Any exceptions are noted below. [facility] Card Cath Procedure Codes Cardiac Catheterization Procedure 1: Cardiovascular Cath Procedures: 26535 Coronaries and LHC (+/-LV) Moderate Sedation Procedure 1: Sedation/Anesthesia: 24524 Mod Sedation by the same physician;Init15 Min Child Age 5 & Up Procedure 2: Sedation/Anesthesia: 28896 Mod Sedation by the same physician; Ea [id number] Minutes Stenting Procedure 1: Cardiovascular Stent Procedures: 89959 Perc transcatheter placement of intracoronary stent(s), with ang PG Care Time/CCT Total # of Minutes Spent Total Time Spent with Patient: Total time spent is greater than 50% in coordination of care (as documented) at patient's floor/unit and/or counseling patient:
[2023-12-13] MEDS: METOPROLOL TARTRATE 1 MG/ML VIAL IV PRN (18:03)
[2023-12-14] MEDS: METOPROLOL SUCC 25MG EXT REL TAB PO SCH (07:07)
[2023-12-14 08:05] VITALS: O2SAT 95
[2023-12-14] MEDS: ASPIRIN 81 MG ECTAB PO SCH (08:10)
[2023-12-14] MEDS: CLOPIDOGREL BISULFATE 75 MG TAB PO SCH (08:10)
[2023-12-14] MEDS: ATORVASTATIN 40 MG TAB PO SCH (08:10)
--- NOTE | 2023-12-14 08:15 | Hospitalist Progress Note ---
Date of Service December 14, 2023 Assessment & Plan (1) Unstable angina: Plan: - s/p cardiac catheterization with stent placement 12/13/23 - 30+ pack year smoking history and no PCP for 10+ years - patient presented with chest pain at rest that began while driving and arguing with someone; along with diaphoresis and dyspnea - Given aspirin via [place] - CXR negative and troponin negative (3.6) on admission - Discussed with adult probation officer refinery operator light ends recovery on admission - recommended heparin 12/12/23 - serial enzymes, EKG in AM, Echo stress test in AM, and see Dr. Phipps in AM - Heparin bolus given on admission - EKG on admission showed T wave inversions in anterior leads - troponin trended, WNL - lipid panel, lipase, and TSH WNL - cardiology recommends dual antiplatelet therapy x 6 months, continue statin, cardiac rehab consult - continue Plavix, aspirin, and atorvastatin - Metoprolol QAM held due to bradycardia, pt asymptomatic on exam - cardiology recommending to (2) Hypertension: Plan: - BP high on admission and continues to be elevated - IV hydralazine 5 mg given on admission - IV hydralazine Q6 prn and metoprolol IV Q4 prn - metoprolol PO daily to have been started 12/13, held due to bradycardia Plan VTE ppx: SCDs and heparin Diet: Heart healthy Code status: Full Code Anticipated discharge 12/13 Admission and Anticipated Discharge Date Admission Date: December 12, 2023 Subjective Review of Systems Review of Systems: See HPI Physical Exam Physical Exam: The patient is awake, alert and oriented 3, well developed and well nourished, normocephalic and atraumatic, in no acute distress. Non-toxic appearing. HEENT- EOMI, mucous membranes moist. Hearing grossly intact. Heart-normal S1 and S2. No murmurs, rubs or gallops. Lungs-clear bilaterally, no respiratory distress, no accessory muscle use. Abdomen-normal bowel sounds and soft. No ascites noted. Non-tender. Extremities- no clubbing, cyanosis, or edema. Rheumatologic-normal range of motion. Psychiatric-normal affect. Results & Data Results & Data Vital Signs (Past 12 Hours) Vital Signs Temp Pulse Pulse Resp BP Pulse Ox O2 Del Method 12/14/23 03:18 36.6 C 49 L 18 178/81 H 97 Room Air 12/14/23 00:24 52 L 12/13/23 23:18 36.7 C 58 L 18 171/90 H 98 Room Air 12/13/23 21:25 50 L 16 172/96 H 96 Room Air 12/13/23 20:28 51 L 16 160/79 H 99 Room Air PG Care Time/CCT Total # of Minutes Spent Total Time Spent with Patient: Total time spent is greater than 50% in coordination of care (as documented) at patient's floor/unit and/or counseling patient: Coding Level of Care Code None Diagnoses Unstable angina I20.0 Hypertension I10 Hypertension type: unspecified (2) Hypertension Hypertension type: unspecified Qualified Code(s): I10 - Essential (primary) hypertension
[2023-12-14 08:27] LABS: Hematocrit (blood only) 40.1 % (37.0-47.0); Hemoglobin 13.5 g/dl (12.0-16.0); Mean Corpuscular Hemoglobin 28.2 pg (25.0-34.0); Mean Corpuscular Hgb Conc 33.7 g/dL (32.0-36.0); Mean Corpuscular Volume 83.7 fL (80.0-100.0); Mean Platelet Volume 10.6 fL (9.4-12.4); Platelet Count 157 K/uL (130-400); RDW Coefficient of Variation 13.8 % (11.5-14.5); RDW Standard Deviation 42.4 fL (36.4-46.3); Red Blood Count 4.79 M/uL (4.20-5.40); White Blood Count 4.07 K/ul (4.8-10.8)
[2023-12-14 08:59] LABS: BUN Creatinine Ratio 21.3 (10-20); Calcium 9.8 mg/dl (8.6-10.3); Est GFR (Non-African American) 95.8 ml/min; Potassium 4.2 mmol/L (3.5-5.1)
--- NOTE | 2023-12-14 10:21 | XCELERA ---
[id number]
--- NOTE | 2023-12-14 11:27 | Discharge Summary ---
Discharge Summary Date of Service December 14, 2023 Principal Dx & Hospital Course #1 = Principal Diagnosis (1) Unstable angina: - s/p cardiac catheterization with stent placement 12/13/23 - 30+ pack year smoking history and no PCP for 10+ years - patient presented with chest pain at rest that began while driving and arguing with someone; along with diaphoresis and dyspnea - CXR negative and troponin negative (3.6) on admission - Discussed with data warehouse consultant transmission repairer on admission - recommended heparin 12/12/23 - Heparin bolus given on admission d/c after cardiac catheterization - EKG on admission showed T wave inversions in anterior leads - troponin trended, WNL - lipid panel, lipase, and TSH WNL - cardiology recommends dual antiplatelet therapy x 6 months, continue statin - continue Plavix, aspirin, and atorvastatin - cardiology recommending to continue metoprolol on discharge (2) Hypertension: - BP high on admission and continues to be elevated - IV hydralazine 5 mg given on admission - IV hydralazine Q6 prn and metoprolol IV Q4 prn - metoprolol PO daily to have been started 12/13 Plan Code status: Full Code Discharge 12/14/23 Notes For Next Care Provider Medication Changes From Visit Plavix 75 mg PO QAM aspirin 81 mg PO QAM atorvastatin 40 mg PO QAM Metoprolol Succinate 25 mg PO QAM Admission HPI Per Admitting Provider Patient is a 63 y/o female with no PMH because she hasn't been seen by a doctor in over 10 years. She presents with left sided burning chest pain that began at rest while drive today, although her BP was likely elevated because she was in an active argument with someone. The pain radiated to her right shoulder and lasted for about 10 minutes. The quality of this pain is different for her because she was diaphoretic and dyspneic with it. She took Pepcid to help with it, but it provided no relief. She pulled over to call the ambulance to come in and was given Aspirin. She has had prior episode of angina for the past few years and stated that they happen a lot when asked to quantify how often. She is a chronic smoker - between 1/2-1 ppd for the past 32 years. She stated she does not have the best diet and eats whatever she wants, likely with high sodium. She does have frequent migraines. Patient denies headache, dizziness, lightheadedness, vision changes, rhinorrhea, sore throat, cough, sputum production, dyspnea, dyspnea on exertion, chest pain, abdominal pain, nausea, vomiting, diarrhea, constipation, dysuria, edema, numbness, tingling. Her only home medication is OTC Pepcid as needed for GERD. She does not use oxygen, cpap/bipap at baseline. She wishes to be full code at this time. Admission Exam Per Admitting Provider The patient is awake, alert and oriented 3, well developed and well nourished, normocephalic and atraumatic, in no acute distress. Non-toxic appearing. HEENT- EOMI, mucous membranes moist. Hearing grossly intact. Heart-normal S1 and S2. No murmurs, rubs or gallops. Lungs-clear bilaterally, no respiratory distress, no accessory muscle use. Abdomen-normal bowel sounds and soft. No ascites noted. Non-tender. Extremities- no clubbing, cyanosis, or edema. Rheumatologic-normal range of motion. Psychiatric-normal affect. Discharge Exam The patient is awake, alert and oriented 3, well developed and well nourished, normocephalic and atraumatic, in no acute distress. Non-toxic appearing. HEENT- EOMI, mucous membranes moist. Hearing grossly intact. Heart-normal S1 and S2. No murmurs, rubs or gallops. Lungs-clear bilaterally, no respiratory distress, no accessory muscle use. Abdomen-normal bowel sounds and soft. No ascites noted. Non-tender. Extremities- no clubbing, cyanosis, or edema. Rheumatologic-normal range of motion. Psychiatric-normal affect. Discharge Plan Discharge Items Patient Disposition: Home - Self-Care Reason For Visit: UNSTABLE ANGINA Discharge Diagnosis: 1. Unstable angina secondary to Coronary Artery Disease 2. Hypertension Condition on Discharge: Good Activity: Resume your previous activity Non-emergency contact: Head Automatic Sawyer Call non-emergency contact if: you have any medication questions and your symptoms worsen Follow-up/Referrals: Jose L Phipps MD [Physician] - 12/17/23 11:00 am (Hospital follow up scheduled with cardiology on December 16 at 11:00 at the [place] location.) PCP,NO [Primary Care Provider] - Diet: Regular Addtl Attending Provider Instructions: You are to follow up with your scheduled appointment with cardiology. You have 4 new medications to take daily after your cardiac catheterization: - Plavix 75 mg PO every morning - aspirin 81 mg PO every morning - atorvastatin 40 mg PO every morning - Metoprolol Succinate 25 mg PO every morning It is important that you continue to take these everyday to help prevent another cardiac event. Pending Studies at Discharge: No Stand-Alone Forms: My [facility], Smoking Cessation Medications and DC Order Prescriptions: New atorvastatin 40 mg Tablet 40 mg PO QAM Qty: 30 6RF clopidogrel 75 mg Tablet 75 mg PO QAM Qty: 30 6RF aspirin 81 mg Tablet,Delayed Release (Dr/Ec) 81 mg PO QAM Qty: 30 6RF metoprolol succinate 25 mg Tablet Extended Release 24 Hr 25 mg PO QAM Qty: 30 6RF Continued acetaminophen [Tylenol Extra Strength] 500 mg Tablet 1,000 mg PO Q6H PRN (Reason: Pain) famotidine [Pepcid] 20 mg Tablet 20 mg PO BID PRN (Reason: Heartburn) Discharge Orders: Discharge Order (Routine); Ordered 12/14/23 Ordered By: Taz Acosta/Other Patient Handouts: Unstable Angina, Hypertension Dc, Identifying Your Heart Risks Admission Data Admit Date/Time: 12/12/23 18:43 Attending Provider: Taz Sparrow Admit Provider: Luis Balderas Primary Care Provider: PCP,NO Other Providers: Jose L Phipps Other Interventions: Discharge Summary Assessment (RN) Last Done: 12/14/23 11:57 Hospital Stay Data Consultations 12/13/23 09:44 Consult Cardiology Routine Procedures Performed Operation Date: 12/13/23 14:00 Actual Procedures p Cineradiography w/Routine Exam(Right) - Bautista Olmos MD p Cath, Left with Cors and Vent - Bautista Olmos MD s Drug Eluting Stent SGl Vessel - Bautista Olmos MD Diagnostic Imagining Performed 12/13/23 14:44 CL Cath Imgs for PACS use only Routine Discharge Instructions Given to Patient (Per Discharging Provider) You are to follow up with your scheduled appointment with cardiology. You have 4 new medications to take daily after your cardiac catheterization: - Plavix 75 mg PO every morning - aspirin 81 mg PO every morning - atorvastatin 40 mg PO every morning - Metoprolol Succinate 25 mg PO every morning It is important that you continue to take these everyday to help prevent another cardiac event. Supervising Physician Co-Signing Physician Notes Patient was seen and examined independently I discussed the case with Melanie DELACRUZ I reviewed pertinent past medical social family history and also the plan of care and agree with the plan of care. Patient was seen in the am of 12/13, no chest pain or shortness of breath, cath site of right wrist is c/d/i and good distal perfusion and sensation Nstemi wtih stent placed in diagonal 1 Patient discharge on aspirin Plavix therapy atorvastatin and metoprolol succinate 25 strongly encouraged smoking cessation It required greater than 30 minutes to prepare this patient for discharge. Any exceptions will be noted below Total Time Total Time Spent Total Time Spent (In Minutes): 50 minutes Coding Level of Care Code None Diagnoses Unstable angina I20.0 Hypertension I10 Hypertension type: unspecified
[2023-12-14 11:46] VITALS: RESP 18; TEMP 100.2
[2023-12-14 11:58] VITALS: BP 140/87; PULSE 55
--- NOTE | 2023-12-14 12:13 | Cardiology Progress Note ---
Date of Service December 14, 2023 Assessment & Plan (1) CAD (coronary artery disease): Plan: -s/p D2 HUAN (2.25 x 26 Robert) yesterday. -100% proximal RCA occlusion with strong left-sided collateralization. -Small D3, 80% ostial stenosis. -Dual antiplatelet therapy for at least 1 year. -Follow-up in our [place] office in several weeks. (2) Hypertension: Plan: -Borderline control on metoprolol succinate 25 mg daily. -Consider addition of an ACEI or ARB. (3) Hypercholesterolemia: Plan: -Agree with atorvastatin. Admission and Anticipated Discharge Date Admission Date: December 12, 2023 Subjective The patient is resting comfortably at the bedside without complaints of chest pain or dyspnea. We have reviewed her cardiac catheterization and the medication she will need to take as an outpatient. Her and daughter are also in the room. Physical Exam Physical Exam: In general this is a well-developed well-nourished white female in no acute distress. HEENT exam is negative. Neck reveals normal carotid upstrokes without bruits. Jugular venous pressure is flat at 90. There is no thyromegaly. Cardiovascular exam reveals a regular rhythm with distant heart sounds. No obvious murmurs. Lungs are clear without rales, rhonchi, or wheezes. Abdomen is soft without bruits. Extremities reveal intact radial artery pulses bilaterally. Dry dressing noted on the right wrist. There are no bruits. There is no peripheral edema. Results & Data Vital Signs (Past 12 Hours) Vital Signs Temp Pulse Pulse Pulse Resp BP BP 12/14/23 11:57 37.9 C H 55 L 62 18 159/85 H 140/87 12/14/23 11:45 37.9 C H 62 18 159/85 H 12/14/23 08:05 47 L 12/14/23 08:04 37.8 C H 59 L 20 142/79 H 12/14/23 03:18 36.6 C 49 L 18 178/81 H 12/14/23 00:24 52 L Pulse Ox O2 Del Method 12/14/23 11:57 95 12/14/23 11:45 95 Room Air 12/14/23 08:05 12/14/23 08:04 95 Room Air 12/14/23 03:18 97 Room Air 12/14/23 00:24 Diagnostic Findings Echocardiogram notes normal left ventricular systolic function with ejection fraction 55 to 60%. There were no wall motion abnormalities. There is mild LVH. threat monitoring analyst is benign. PG Care Time/CCT Total # of Minutes Spent Total Time Spent with Patient: Total time spent is greater than 50% in coordination of care (as documented) at patient's floor/unit and/or counseling patient: Coding Level of Care Code 43598 SUB INP/OBS CARE 3/50MIN Diagnoses CAD (coronary artery disease) I25.10 Hypertension I10 Hypertension type: unspecified Hypercholesterolemia E78.00 (2) Hypertension Hypertension type: unspecified Qualified Code(s): I10 - Essential (primary) hypertension
--- NOTE | 2023-12-14 13:19 | Electrocardiogram Report ---
Test Reason : Blood Pressure : */* mmHG Vent. Rate : 60 BPM Atrial Rate : 60 BPM P-R Int : 152 ms QRS Dur : 94 ms QT Int : 444 ms P-R-T Axes : 44 53 256 degrees QTcB Int : 444 ms Poor data quality, interpretation may be adversely affected Normal sinus rhythm Anteroseptal infarct , age undetermined Nonspecific ST and T wave abnormality Abnormal ECG When compared with ECG of 13-Dec-2023 05:46, Anteroseptal infarct is now Present Non-specific change in ST segment in Anterior leads Nonspecific T wave abnormality, worse in Inferior leads Nonspecific T wave abnormality, worse in Lateral leads Confirmed by Jose L Phipps ([id number]) on 12/14/2023 1:19:29 PM Referred By: REFERRED SELF Confirmed By: Jose L Phipps
--- NOTE | 2023-12-14 14:20 | Billing Data ---
Date of Service December 14, 2023 Coding Level of Care Code 42639 INP/OBS DISCH >30 MIN
== END 2023-12-14 13:06 | disposition home or self-care (01) ==
LOC: 2S 16:13 → ED 16:13 → SUATTDRO 18:43 → 2S 20:09
DX: I25.110 Atherosclerotic heart disease of native coronary artery with unstable angina pectoris; E78.00 Pure hypercholesterolemia, unspecified; I25.82 Chronic total occlusion of coronary artery; Z90.49 Acquired absence of other specified parts of digestive tract; I10 Essential (primary) hypertension; K21.9 Gastro-esophageal reflux disease without esophagitis; F17.210 Nicotine dependence, cigarettes, uncomplicated

== ENCOUNTER 2023-12-16 14:09 | Observation (INO) ==
--- NOTE | 2023-12-16 14:22 | Emergency Department Note ---
Impression & Plan Chest pain ADMIT ED Provider Note HPI: History obtained from patient. The patient is a 63-year-old female with history of coronary artery disease, status post stent placement by Dr. Olmos here at [facility] 3 days ago on 12/12. Presents the emergency department today with a chief complaint of epigastric pain. Patient states that earlier today she developed some mild epigastric pain that was transient in nature. She states it happened several times and this did feel similar to pain she had the past that led to her cardiac catheterization. Patient therefore came to the ER to be assessed. On my assessment here in the ED the patient states that her pain is now resolved. She otherwise appears to be in no acute distress on my initial assessment. ROS: - Per HPI Differential Diagnosis: Acute coronary syndrome, unstable angina, coronary artery aneurysm, ventricular wall rupture, pericarditis, aortic dissection, amongst other potential pathologies. *Outpatient medications and allergy history reviewed. PE: General: Alert HEENT: Normocephalic, trachea midline Eyes: Extraocular eye movement is intact, no scleral erythema Pulmonary: Clear to auscultation bilaterally, no wheezing Cardio: Regular rate and rhythm GI: Abdomen is soft to palpation : No suprapubic tenderness MSK: No evidence of trauma or malformation of the extremities, no edema Skin: No evidence of rash Neuro: Alert, no focal deficits Psychiatric: Cooperative INDEPENDENT INTERPRETATIONS: environmental monitoring specialist: (As interpreted by myself): - An order was placed for continuous cardiac monitoring - Patient was noted to be in sinus rhythm with a rate of 56 EKG: (As interpreted by myself): Rate: 57 Rhythm: Sinus bradycardia Intervals: Within normal limits ST changes: No ST elevation Time: 1423 Chest x-ray: (As interpreted by myself): No acute disease Interventions provided in ED: -Aspirin Medical Decision Making: IV was established and lab work obtained, patient was placed on cardiac catheterization technician. EKG as reviewed by myself does not show any evidence of ST elevation AR. Lab work shows no leukocytosis, hemoglobin is normal, platelet count is normal, CMP does not show any critical findings. Troponin is noted to be elevated at 49.4. Unclear whether this could be related to angina versus bump in troponin from recent stent placement. Given that the patient's pain is similar in nature to that that she had prior to her stent placement, do feel that she is high risk for discharge and she should be admitted for observation. I discussed this with the patient and her daughter at the bedside, at this time they are in agreement for admission. Case was discussed with the on-call hospitalist, Dr. Balderas, the patient was placed for admission in stable condition. Consultants/Discussions held with other healthcare providers: -Hospitalist, Dr. Balderas Disposition discussion held by myself with: -Patient and patient's daughter at the bedside Diagnosis: 1. Chest pain, acute 2. Elevated troponin, acute 3. History of coronary artery disease, status post recent stent placement Disposition: Admission Ra Moseley DO Emergency Medicine Past Med/Surg History Problem List Hypercholesterolemia CAD (coronary artery disease) Chest pain (Acute) Hypertension (Acute) Unstable angina History of hysterectomy History of cholecystectomy Medical History No pertinent past medical history Social History Smoking Status: Current every day smoker Tobacco Type: Cigarettes Cigarettes Per Day: 10; Do You Dip or Chew Tobacco: No; Hx Alcohol Use: No Hx Substance Use: No Preferred Language: [place] Zealander Communication Ability: Effective Bulk Picker Required: No Beliefs That Will Affect Care: None Current Living Situation: Spouse and Family Current Living Situation Comment: At home with and [id number] Feels Safe at Home: Yes Assistive Devices: None Allergies Allergies Allergy/AdvReac Type Severity Reaction Status Date / Time No Known Allergies Allergy Unverified 12/12/23 18:01 Home Meds Home Medications Medication Instructions Recorded Confirmed acetaminophen 500 mg tablet 1,000 mg PO Q6H PRN Pain 01/23/19 12/16/23 (Tylenol Extra Strength) famotidine 20 mg tablet (Pepcid) 20 mg PO BID PRN Heartburn 12/12/23 12/16/23 Previous Rx's Medication Instructions Recorded aspirin 81 mg tablet,delayed 81 mg PO QAM #30 tabs 12/14/23 release atorvastatin 40 mg tablet 40 mg PO QAM #30 tabs 12/14/23 clopidogrel 75 mg tablet 75 mg PO QAM #30 tabs 12/14/23 metoprolol succinate 25 mg 25 mg PO QAM #30 tabs 12/14/23 tablet,extended release 24 hr Results & Data (ED) Vital Signs Vital Signs - 24 hr 12/16/23 14:15 12/16/23 15:04 Temperature 36.9 C Temperature Source Oral Pulse Rate 54 L Pulse Rate [Finger] 48 L Pulse Rhythm Regular Pulse Rhythm [Finger] Regular Pulse Strength Normal Pulse Strength [Finger] Normal Respiratory Rate 18 18 Respiratory Effort / Characteristics Non-Labored Non-Labored Respiratory Depth Normal Normal Respiratory Pattern Regular Regular Blood Pressure 193/106 H Blood Pressure [Right Arm] 155/84 H Blood Pressure Mean 135 Blood Pressure Mean [Right Arm] 107 Blood Pressure Position [Right Arm] Lying Pulse Oximetry 98 99 Oxygen Delivery Method Room Air Room Air Sepsis Recent Fever Within 48 Hours No Sepsis New/Unexplained Change in Mental Status N/A Sepsis Action Taken by Nursing No Action Required Laboratory Data 12/16/23 14:35 12/16/23 14:35 Lab Results 12/16/23 Range/Units 14:35 WBC 6.46 (4.8-10.8) K/ul RBC 4.85 (4.20-5.40) M/uL Hgb 13.3 (12.0-16.0) g/dl Hct 41.1 (37.0-47.0) % MCV 84.7 (80.0-100.0) fL MCH 27.4 (25.0-34.0) pg MCHC 32.4 (32.0-36.0) g/dL RDW Std Deviation 41.8 (36.4-46.3) fL RDW Coeff of Cecilia 13.5 (11.5-14.5) % Plt Count 168 (130-400) K/uL MPV 10.7 (9.4-12.4) fL Immature Gran % (Auto) 0.3 % Neut % (Auto) 67.8 % Lymph % (Auto) 24.9 % Meeker % (Auto) 6.3 % Eos % (Auto) 0.2 % Baso % (Auto) 0.5 % Neut # (Auto) 4.38 (1.40-6.50) K/uL Lymph # (Auto) 1.61 (1.20-3.40) K/uL Meeker # (Auto) 0.41 (0.11-0.59) K/uL Eos # (Auto) 0.01 (0.00-0.50) K/uL Baso # (Auto) 0.03 (0.00-0.20) K/uL Immature Gran # (Auto) 0.02 (0.01-0.20) K/uL PT Cancelled INR Cancelled Sodium 135 L (136-145) mmol/L Potassium 4.5 (3.5-5.1) mmol/L Chloride 105 (98-107) mmol/L Carbon Dioxide 24 (21-32) mmol/L Anion Gap 6 (3-11) BUN 12 (6-23) mg/dl Creatinine 0.62 (0.6-1.2) mg/dl Est Cr Clr Drug Dosing 105.7 ml/min Est GFR ( Amer) 110.4 ml/min Est GFR (Non-Af Amer) 95.3 ml/min BUN/Creatinine Ratio 19.4 (10-20) Glucose 94 (70-99(Fasting)) mg/dl Calcium 9.8 (8.6-10.3) mg/dl Total Bilirubin 0.5 (0.2-1.0) mg/dl AST 32 (13-39) U/L ALT 27 (7-52) U/L Alkaline Phosphatase 87 (34-104) U/L Troponin I High Sens 49.4 H (0-14) pg/ml Total Protein 6.4 (6.0-8.3) gm/dl Albumin 4.0 (3.4-5.0) gm/dl Globulin 2.4 L (2.5-4.0) gm/dl Albumin/Globulin Ratio 1.7 (0.9-2) Lipase 38 (11-82) U/L Administered Medications Discontinued Medications Sodium Chloride (Nss) 500 mls @ 999 mls/hr IV .Q31M STA Stop: 12/16/23 14:42 Last Admin: 12/16/23 15:02 Dose: 999 mls/hr Documented By: [facility] Data Radiologist's Impression: Chest X-Ray 12/16/23 14:12 XR chest 1V portable CLINICAL HISTORY: Chest pain, nonspecific TECHNIQUE: Single frontal radiograph of the chest was obtained. Comparison: Comparison is made to chest radiograph 12/12/2023 FINDINGS: No lines and tubes are seen. Calcified aortic knob is seen. The lungs are clear. No evidence of pleural effusion or pneumothorax. IMPRESSION: No acute chest disease. ACT 112: Negative or not required by law. Electronically signed by: Raad Valencia M.D. 12/16/2023 2:53 PM Discharge Plan Visit Data Chief Complaint: Chest Pain ED Provider: Ra Moseley Discharge Problem: Chest pain Forms Stand Alone Forms: [facility] Prescriptions Prescriptions: No Action acetaminophen [Tylenol Extra Strength] 500 mg Tablet 1,000 mg PO Q6H PRN (Reason: Pain) famotidine [Pepcid] 20 mg Tablet 20 mg PO BID PRN (Reason: Heartburn) atorvastatin 40 mg Tablet 40 mg PO QAM Qty: 30 6RF clopidogrel 75 mg Tablet 75 mg PO QAM Qty: 30 6RF aspirin 81 mg Tablet,Delayed Release (Dr/Ec) 81 mg PO QAM Qty: 30 6RF metoprolol succinate 25 mg Tablet Extended Release 24 Hr 25 mg PO QAM Qty: 30 6RF Referrals Referrals: PCP,NO [Primary Care Provider] -
--- NOTE | 2023-12-16 14:54 | XRay Report ---
XR chest 1V portable CLINICAL HISTORY: Chest pain, nonspecific TECHNIQUE: Single frontal radiograph of the chest was obtained. Comparison: Comparison is made to chest radiograph 12/12/2023 FINDINGS: No lines and tubes are seen. Calcified aortic knob is seen. The lungs are clear. No evidence of pleur al effusion or pneumothorax. IMPRESSION: No acute chest disease. ACT 112: Negative or not required by law. Electronically signed by: Raad Valencia M.D. 12/16/2023 2:53 PM
[2023-12-16 14:56] LABS: Basophils # (auto) 0.03 K/uL (0.00-0.20); Basophils % (auto) 0.5 %; Eosinophils # (auto) 0.01 K/uL (0.00-0.50); Eosinophils % (auto) 0.2 %; Hematocrit (blood only) 41.1 % (37.0-47.0); Hemoglobin 13.3 g/dl (12.0-16.0); Immature Granulocytes # (auto) 0.02 K/uL (0.01-0.20); Immature Granulocytes % (auto) 0.3 %; Lymphocytes # (auto) 1.61 K/uL (1.20-3.40); Lymphocytes % (auto) 24.9 %; Mean Corpuscular Hemoglobin 27.4 pg (25.0-34.0); Mean Corpuscular Hgb Conc 32.4 g/dL (32.0-36.0); Mean Corpuscular Volume 84.7 fL (80.0-100.0); Mean Platelet Volume 10.7 fL (9.4-12.4); Monocytes # (auto) 0.41 K/uL (0.11-0.59); Monocytes % (auto) 6.3 %; Neutrophils # (auto) 4.38 K/uL (1.40-6.50); Neutrophils % (auto) 67.8 %; Platelet Count 168 K/uL (130-400); RDW Coefficient of Variation 13.5 % (11.5-14.5); RDW Standard Deviation 41.8 fL (36.4-46.3); Red Blood Count 4.85 M/uL (4.20-5.40); White Blood Count 6.46 K/ul (4.8-10.8)
[2023-12-16] MEDS: SODIUM CHLORIDE 0.9% 500 ML IV STA (15:02)
[2023-12-16 15:16] LABS: Albumin Globulin Ratio 1.7 (0.9-2); BUN Creatinine Ratio 19.4 (10-20); Bilirubin,Total 0.5 mg/dl (0.2-1.0); Calcium 9.8 mg/dl (8.6-10.3); Creatinine Clr Calc Pharmacy 105.7 ml/min; Est GFR (African American) 110.4 ml/min; Est GFR (Non-African American) 95.3 ml/min; Globulin 2.4 gm/dl (2.5-4.0); Potassium 4.5 mmol/L (3.5-5.1); Total Protein 6.4 gm/dl (6.0-8.3)
[2023-12-16 15:22] LABS: Troponin I High Sensitivity 49.4 pg/ml (0-14)
--- NOTE | 2023-12-16 15:46 | History & Physical Report ---
Date of Service December 16, 2023 Assessment & Plan (1) Chest pain: Plan: Midsternal, exertional chest pain that began while walking around on 12/15 Recent cardiac catheterization on 12/12 Echocardiogram performed on 12/14/2023 revealed LVEF at 60-65% EKG today without acute changes Troponin 49.4->55.7 on arrival; trend q6h to peak Patient reports good compliance with taking aspirin and Plavix at home Continue DAPT Continuous telemetry monitoring A.m. CBC, BMP, mag, troponin (2) Hypertension: Plan: Elevated BP at time of admission (170/105) Amlodipine 5mg p.o. given and will plan to start QAM Hydralazine 5mg IV as needed for SPB >180 or DBP >100 (3) CAD (coronary artery disease): Plan: Continue metoprolol, atorvastatin (4) Tobacco use: Plan: Current everyday tobacco cigarette smoker Patient declines nicotine patch at time of admission Continue to counselor dormitory on cessation Plan Disposition: Obs - admit to [facility] telemetry Full code Heart healthy diet VTE PPx: Continue ASA + Plavix; Lovenox 40mg SQ q24h History of Present Illness Chief Complaint: Chest pain Primary Care Provider: NO PCP Magda is a 63-year-old female with PMH of unstable angina, HTN, CAD, hypercholesteremia, cholecystectomy, and recent stent placement. She presented on 12/15 for new onset midsternal chest pain. Patient was recently hospitalized this past week and received a cardiac catheterization and stent placement. She was discharged on 12/13. She reports that she did not have any chest pain at time of discharge, and has been fine over the past 2 days. Then today, while walking in [facility], she developed midsternal, intermittent chest pain. She characterized it as "achy" rated at 3/10 at worst; she is chest pain-free at time of admission. Patient's significant other (Fabiano) reports that it was worse than 3/10, and that patient had to go to the bathroom, then sit down in the car. Patient reports the chest pain was alleviated after sitting in the car. No radiation of chest pain up to the shoulders or down the arms bilaterally; no radiation to the back between the shoulder blades. Patient did not take any pain medicine prior to coming in the hospital. She reports that she took her regular morning medications; only recent change in medications was after the cardiac catheterization. Patient's daughter (Beth) is at the bedside and reports that the patient was "out of breath" when she was speaking to her over the phone. No recent falls or injuries to the chest wall. No prior history of SC. Patient is a current tobacco cigarette smoker; 1 PPD, however she has only had "2 cigarettes" since leaving the hospital. She denies any nicotine patch at time of admission. No recent alcohol use. Patient is hypertensive at 155/84 bradycardic at 49 bpm at time of admission; vitals otherwise stable. ED course: Aspirin 324 mg p.o. NSS 500 mL IV ROS: Patient endorses midsternal chest pain (resolved). Patient denies fever, chills, night sweats, dizziness, lightheadedness, headache, chest pain at time of admission, chest pain in the shoulders or arms, back pain, SOB, pleuritic CP, palpitations, cough, abdominal pain, N/V/D, changes in urinary/bowel habits, or numbness or tingling in the arms or legs. Allergies Allergy/AdvReac Type Severity Reaction Status Date / Time No Known Allergies Allergy Unverified 12/12/23 18:01 Home Medications Medication Instructions Recorded Confirmed Type acetaminophen 500 mg tablet 1,000 mg PO Q6H PRN Pain 01/23/19 12/16/23 History (Tylenol Extra Strength) famotidine 20 mg tablet (Pepcid) 20 mg PO BID PRN Heartburn 12/12/23 12/16/23 History aspirin 81 mg tablet,delayed 81 mg PO QAM #30 tabs 12/14/23 12/16/23 Rx release atorvastatin 40 mg tablet 40 mg PO QAM #30 tabs 12/14/23 12/16/23 Rx clopidogrel 75 mg tablet 75 mg PO QAM #30 tabs 12/14/23 12/16/23 Rx metoprolol succinate 25 mg 25 mg PO QAM #30 tabs 12/14/23 12/16/23 Rx tablet,extended release 24 hr Past Med/Surg History Problem List Tobacco use Hypercholesterolemia CAD (coronary artery disease) Chest pain (Acute) Hypertension (Acute) Unstable angina History of hysterectomy History of cholecystectomy Medical History No pertinent past medical history Social History Smoking Status: Current every day smoker Tobacco Type: Cigarettes Cigarettes Per Day: 10; Do You Dip or Chew Tobacco: No; Hx Alcohol Use: No Hx Substance Use: No Preferred Language: Maltese Communication Ability: Effective Fire Alarm Technician Required: No Beliefs That Will Affect Care: None Current Living Situation: Spouse and Family Current Living Situation Comment: At home with and [id number] Feels Safe at Home: Yes Assistive Devices: None Review of Systems Review of Systems: See HPI above Physical Exam Physical Exam: General: no acute distress; non-toxic appearing; well-nourished; cooperative HEENT: normocephalic, atraumatic; no scleral icterus; PERRLA w/ EOMs intact; vision and hearing grossly intact Neck: supple; no lymphadenopathy; trachea midline Skin: warm, dry without signs of tenting; no cyanosis; no rashes, bruising, lesions, or erythema noted CV: chest wall NTP; RRR; S1/S2 normal; no murmurs/rubs/gallops; pulses intact and symmetric at radial, DP, and PT Lungs: no acute respiratory distress; symmetrical chest wall expansion; clear breath sounds across all lung betts w/o adventitious sounds; no wheezing ABD: Soft, NTP; BS present; no rebound/guarding; no distention MSK: no tics or fasciculations; no edema noted in the LEs b/l, nonerythematous Neuro: A&Ox3; normal mood and affect; fluent speech; no focal deficits; sensation grossly intact in the LEs b/l Results & Data Results & Data Vital Signs (Past 12 Hours) Vital Signs Temp Pulse Pulse Resp BP BP Pulse Ox 12/16/23 15:04 48 L 18 155/84 H 99 12/16/23 14:15 36.9 C 54 L 18 193/106 H 98 O2 Del Method 12/16/23 15:04 Room Air 12/16/23 14:15 Room Air Laboratory Results Abnormal lab results 12/16/23 Range/Units 14:35 Sodium 135 L (136-145) mmol/L Troponin I High Sens 49.4 H (0-14) pg/ml Globulin 2.4 L (2.5-4.0) gm/dl Diagnostic Findings Chest X-Ray 12/16/23 14:12 XR chest 1V portable CLINICAL HISTORY: Chest pain, nonspecific TECHNIQUE: Single frontal radiograph of the chest was obtained. Comparison: Comparison is made to chest radiograph 12/12/2023 FINDINGS: No lines and tubes are seen. Calcified aortic knob is seen. The lungs are clear. No evidence of pleural effusion or pneumothorax. IMPRESSION: No acute chest disease. ACT 112: Negative or not required by law. Electronically signed by: Raad Valencia M.D. 12/16/2023 2:53 PM ECG Additional Comments: ECG revealed sinus bradycardia at 75 bpm; QTc 430 Similar to prior on 12/13/2023 Code Status & VTE Plan Code Status Full code VTE Prophylaxis Plan VTE Prophylaxis will be ordered: Yes Supervising Physician Co-Signing Physician Notes Patient seen and examined, chart reviewed, case discussed with Robson Oseguera PA-C and I agree with the assessment and plan as above except as otherwise noted Labs and images reviewed 63-year-old female recently seen for chest pain with multivessel disease noted and with PCI placed to LAD who presents with epigastric pain but with a similar quality to her prior chest pain. Troponin is minimally elevated at 49.4, repeat 55.7, trended to peak. EKG without acute changes. She is chest pain-free at time of provider assessment however has been intermittently hypertensive [id number]. Further beta-radha titration limited by bradycardia. Amlodipine added and continued. She is chest pain-free at time of reassessment. Lungs are clear. Heart rate is regular. Agree with above PG Care Time/CCT Total # of Minutes Spent Total Time Spent with Patient: Total time spent is greater than 50% in coordination of care (as documented) at patient's floor/unit and/or counseling patient: C[place] [address] INT INP/OBS CARE 2/55MIN Patient Type Established Medical Decision Making Moderate Complexity Diagnoses Chest pain R07.9 Hypertension I10 Hypertension type: unspecified CAD (coronary artery disease) I25.10 Tobacco use Z72.0 (2) Hypertension Hypertension type: unspecified Qualified Code(s): I10 - Essential (primary) hypertension
[2023-12-16] MEDS: ASPIRIN CHEW 324 MG PO STA (16:11)
[2023-12-16] MEDS: amLODIPine BESYLATE 5 MG TAB PO ONE (18:52)
[2023-12-16] MEDS ORDERED: ACETAMINOPHEN 325 MG TAB PO PRN (19:36)
[2023-12-16] MEDS ORDERED: FAMOTIDINE 20 MG TAB PO PRN (19:36)
[2023-12-16] MEDS ORDERED: NITROGLYCERIN 2% OINTMENT 30GM TUBE EXT PRN (19:36)
[2023-12-16] MEDS: ENOXAPARIN INJ 40 MG/0.4 ML SYR SQ SCH (20:59)
[2023-12-16 23:45] VITALS: RESP 18
[2023-12-17 06:19] LABS: Hematocrit (blood only) 39.1 % (37.0-47.0); Hemoglobin 12.7 g/dl (12.0-16.0); Mean Corpuscular Hemoglobin 27.7 pg (25.0-34.0); Mean Corpuscular Hgb Conc 32.5 g/dL (32.0-36.0); Mean Corpuscular Volume 85.4 fL (80.0-100.0); Mean Platelet Volume 10.4 fL (9.4-12.4); Platelet Count 160 K/uL (130-400); RDW Coefficient of Variation 13.6 % (11.5-14.5); RDW Standard Deviation 42.3 fL (36.4-46.3); Red Blood Count 4.58 M/uL (4.20-5.40); White Blood Count 5.74 K/ul (4.8-10.8)
[2023-12-17 06:42] LABS: Troponin I High Sensitivity 51.3 pg/ml (0-14)
[2023-12-17 07:00] LABS: BUN Creatinine Ratio 18.3 (10-20); Calcium 9.3 mg/dl (8.6-10.3); Creatinine Clr Calc Pharmacy 108.5 ml/min; Est GFR (African American) 111.6 ml/min; Est GFR (Non-African American) 96.3 ml/min; Magnesium 1.9 mg/dl (1.7-2.4); Potassium 4.2 mmol/L (3.5-5.1)
--- NOTE | 2023-12-17 07:36 | Hospitalist Progress Note ---
Date of Service December 17, 2023 Assessment & Plan (1) Chest pain: Plan: Midsternal, exertional chest pain that began while walking around on 12/15 Recent cardiac catheterization on 12/12 stent to diagnoal Echocardiogram performed on 12/14/2023 revealed LVEF at 60-65% EKG on admission without acute changes Troponin 49.4->55.7 Patient reports good compliance with taking aspirin and Plavix at home Continue DAPT consult cardiology to discuss if a perfusion study maybe helpful (2) Hypertension: Plan: Elevated BP at time of admission (170/105) Amlodipine 5mg p.o. given, but will shoot for lisinopril for GBMT Hydralazine 5mg IV as needed for SPB >180 or DBP >100 (3) CAD (coronary artery disease): Plan: Continue metoprolol, atorvastatin (4) Tobacco use: Plan: Current everyday tobacco cigarette smoker Patient declines nicotine patch at time of admission Continue to appliance counselor on cessation Plan Full code Heart healthy diet VTE PPx: Continue ASA + Plavix; Lovenox 40mg SQ q24h Admission and Anticipated Discharge Date Admission Date: December 16, 2023 Results & Data Results & Data Vital Signs (Past 12 Hours) Vital Signs Temp Pulse Pulse Resp BP Pulse Ox O2 Del Method 12/17/23 03:30 97.7 F 59 L 18 144/75 H 97 Room Air 12/16/23 23:44 97.5 F L 49 L 18 148/70 H 98 Room Air 12/16/23 21:44 47 L 12/16/23 19:37 98.1 F 53 L 12 202/83 H 97 Room Air PG Care Time/CCT Total # of Minutes Spent Total Time Spent with Patient: Total time spent is greater than 50% in coordination of care (as documented) at patient's floor/unit and/or counseling patient: Coding Diagnoses Chest pain R07.9 Hypertension I10 Hypertension type: unspecified CAD (coronary artery disease) I25.10 Tobacco use Z72.0 (2) Hypertension Hypertension type: unspecified Qualified Code(s): I10 - Essential (primary) hypertension
[2023-12-17] MEDS: ASPIRIN 81 MG ECTAB PO SCH (08:16)
[2023-12-17] MEDS: CLOPIDOGREL BISULFATE 75 MG TAB PO SCH (08:16)
[2023-12-17] MEDS: ATORVASTATIN 40 MG TAB PO SCH (08:16)
[2023-12-17] MEDS: METOPROLOL SUCC 25MG EXT REL TAB PO SCH (08:17)
[2023-12-17] MEDS ORDERED: amLODIPine BESYLATE 5 MG TAB PO SCH (09:00)
[2023-12-17] MEDS: lisinopril 5 MG TAB PO SCH (09:22)
--- NOTE | 2023-12-17 11:25 | Cardiology Consultation ---
Date of Consultation December 17, 2023 Assessment & Plan (1) Chest pain: (2) CAD (coronary artery disease): Plan 1. Chest pain: Her chest pain this presentation is similar to last week, catheterization last week demonstrated coronary artery disease and she did receive a stent. Her chest pain does not seem to be classically exertional and it is described as in the lower chest and epigastric area. It is associated with GI symptoms. I think it is very possible that her symptoms last visit and this are both due to some other cause not ischemia. I discussed this with Dr. Olmos and both of us feel that she should not go to the lab and other causes for the discomfort should be evaluated, such as GI. 2. Coronary disease: She has known coronary artery disease and recently had stent placement. Her electrocardiogram and her enzyme pattern is not suggestive of acute infarction (such as stent occlusion). She does need risk factor modification but I would not consider further intervention at this time. History of Present Illness Reason for Consultation: Chest pain Attending Physician: Taz Sparrow MD History of Present Illness This is a 63-year-old woman who was recently hospitalized on December 13, 2023 with chest pain. This occurred only the day before presentation but was highly suggestive of coronary artery disease therefore she had cardiac catheterization performed on that day. She was found to have severe multivessel coronary artery disease with an occluded right coronary artery and a significant second diagonal stenosis. The diagonal stenosis was treated with a drug-eluting stent. An echocardiogram done the day after her catheterization showed normal left darrick tricular systolic function with no regional wall motion abnormalities and mild concentric left ventricular hypertrophy. Ejection fraction was 60 to 65%. She was monitored overnight and discharged December 14, 2023. She presents now with epigastric/chest discomfort felt to be similar to the symptoms prior to cardiac catheterization. Her presenting electrocardiogram shows sinus bradycardia at 57 bpm with left ventricular hypertrophy but no acute changes. Her high-sensitivity troponin measurements are elevated to the mid 40s to mid 50 range without a particular pattern. She describes this discomfort occurring while she was shopping, she went back out and sat in the car before coming to the emergency room. She believes the discomfort is similar to her initial presentation last week, and she describes it and points to a position in the epigastric area. She believes it lasted at least 20 minutes before she came into the emergency room. She also tells me that it is associated with GI upset and nausea, as it was last time as well. Allergies Allergy/AdvReac Type Severity Reaction Status Date / Time No Known Allergies Allergy Unverified 12/12/23 18:01 Home Medications Medication Instructions Recorded Confirmed Type acetaminophen 500 mg tablet 1,000 mg PO Q6H PRN Pain 01/23/19 12/16/23 History (Tylenol Extra Strength) famotidine 20 mg tablet (Pepcid) 20 mg PO BID PRN Heartburn 12/12/23 12/16/23 History aspirin 81 mg tablet,delayed 81 mg PO QAM #30 tabs 12/14/23 12/16/23 Rx release atorvastatin 40 mg tablet 40 mg PO QAM #30 tabs 12/14/23 12/16/23 Rx clopidogrel 75 mg tablet 75 mg PO QAM #30 tabs 12/14/23 12/16/23 Rx metoprolol succinate 25 mg 25 mg PO QAM #30 tabs 12/14/23 12/16/23 Rx tablet,extended release 24 hr Patient History Medical History No pertinent past medical history Social History Smoking Status: Current every day smoker Tobacco Type: Cigarettes Cigarettes Per Day: 10; Second Hand Exposure: Yes; Do You Dip or Chew Tobacco: No; Tobacco Cessation Education Requested by Patient: No Hx Alcohol Use: No Hx Substance Use: No Preferred Language: Maltese Communication Ability: Effective Folder Hand Required: No Beliefs That Will Affect Care: None Current Living Situation: Spouse and Family Current Living Situation Comment: At home with and [id number] Other Information That Helps Us Care for You: No Feels Safe at Home: Yes Safety Concerns: Feels Safe At This Time Assistive Devices: None Review of Systems Review of Systems: All systems reviewed & are unremarkable except as noted in HPI & below Physical Exam Physical Exam: Constitutional: Alert, cooperative and in no distress. HEENT: Unremarkable Neck: No jugular venous distention, carotid pulses are normal and equal bilaterally without bruits. Pulmonary: Clear to auscultation bilaterally. Cardiac: Regular rhythm with no murmur, gallop or rub. Abdomen: Soft, nontender with normal bowel sounds. Extremities: No edema. Distal pulses intact. Neurologic: No focal findings. Gait is steady. Skin: No rash, ecchymoses or petechiae. Results & Data Vital Signs (Past 12 Hours) Vital Signs Temp Pulse Pulse Resp BP BP Pulse Ox 12/17/23 08:01 36.6 C 49 L 18 143/76 H 97 12/17/23 07:30 50 L 12/17/23 03:30 36.5 C 59 L 18 144/75 H 97 12/16/23 23:44 36.4 C L 49 L 18 148/70 H 98 O2 Del Method 12/17/23 08:01 Room Air 12/17/23 07:30 12/17/23 03:30 Room Air 12/16/23 23:44 Room Air Laboratory Results Cardiac Enzymes 12/16/23 12/16/23 12/16/23 Range/Units 14:35 16:26 19:17 AST 32 (13-39) U/L Troponin I High Sens 49.4 H 55.7 H* 44.9 H D (0-14) pg/ml 12/16/23 12/17/23 12/17/23 Range/Units 22:32 05:41 10:56 AST (13-39) U/L Troponin I High Sens 49.6 H 51.3 H* 41.0 H D (0-14) pg/ml Coagulation 12/16/23 Range/Units 14:35 PT Cancelled CBC 12/16/23 12/17/23 Range/Units 14:35 05:41 WBC 6.46 5.74 (4.8-10.8) K/ul RBC 4.85 4.58 (4.20-5.40) M/uL Hgb 13.3 12.7 (12.0-16.0) g/dl Hct 41.1 39.1 (37.0-47.0) % Plt Count 168 160 (130-400) K/uL Neut # (Auto) 4.38 (1.40-6.50) K/uL Lymph # (Auto) 1.61 (1.20-3.40) K/uL Fleming # (Auto) 0.41 (0.11-0.59) K/uL Eos # (Auto) 0.01 (0.00-0.50) K/uL Baso # (Auto) 0.03 (0.00-0.20) K/uL Comprehensive Metabolic Panel 12/16/23 12/17/23 Range/Units 14:35 05:41 Sodium 135 L 139 (136-145) mmol/L Potassium 4.5 4.2 (3.5-5.1) mmol/L Chloride 105 109 H (98-107) mmol/L Carbon Dioxide 24 24 (21-32) mmol/L BUN 12 11 (6-23) mg/dl Creatinine 0.62 0.60 (0.6-1.2) mg/dl Glucose 94 88 (70-99(Fasting)) mg/dl Calcium 9.8 9.3 (8.6-10.3) mg/dl AST 32 (13-39) U/L ALT 27 (7-52) U/L Alkaline Phosphatase 87 (34-104) U/L Total Protein 6.4 (6.0-8.3) gm/dl Albumin 4.0 (3.4-5.0) gm/dl Intake and Output 12/16/23 12/17/23 12/17/23 22:59 06:59 14:59 Intake Total 500 / 700 200 / 700 Balance 500 / 700 200 / 700 Intake: IV 500 / 500 Sodium Chloride 0.9% 500 ml @ 500 / 500 999 mls/hr IV .Q31M STA Rx#: [id number] Oral 200 / 200 Other: Weight 82.1 kg Weight Measurement Method Standing Scale Diagnostic Findings Telemetry: Sinus rhythm, no significant arrhythmia PG Care Time/CCT Total # of Minutes Spent Total Time Spent with Patient: Total time spent is greater than 50% in coordination of care (as documented) at patient's floor/unit and/or counseling patient: Coding Level of Care Code 36627 INT INP/OBS CARE 3/75MIN Diagnoses Chest pain R07.9 CAD (coronary artery disease) I25.10
[2023-12-17 15:35] VITALS: PULSE 62; TEMP 98.6; O2SAT 98
--- NOTE | 2023-12-17 16:27 | Discharge Summary ---
Discharge Summary Date of Service December 17, 2023 Principal Dx & Hospital Course #1 = Principal Diagnosis (1) Chest pain: Midsternal, exertional chest pain that began while walking around on 12/15 Recent cardiac catheterization on 12/12 stent to isabella seen by cardiology do not feel any additional testing required, nor medication changes did add lisinopril for bp control Echocardiogram performed on 12/14/2023 revealed LVEF at 60-65% EKG on admission without acute changes Troponin 49.4->55.7 Patient reports good compliance with taking aspirin and Plavix at home Continue DAPT Rx for home nitro given plus bid pepcid (2) Hypertension: Elevated BP at time of admission (170/105) (3) CAD (coronary artery disease): Continue metoprolol, atorvastatin (4) Tobacco use: Current everyday tobacco cigarette smoker Patient declines nicotine patch at time of admission Continue to head counselor on cessation Plan Full code Heart healthy diet Notes For Next Care Provider Evaluate blood pressure and electrolytes with institution of YRIS inhibitor Admission HPI Per Admitting Provider Magda is a 63-year-old female with PMH of unstable angina, HTN, CAD, hypercholesteremia, cholecystectomy, and recent stent placement. She presented on 12/15 for new onset midsternal chest pain. Patient was recently hospitalized this past week and received a cardiac catheterization and stent placement. She was discharged on 12/13. She reports that she did not have any chest pain at time of discharge, and has been fine over the past 2 days. Then today, while walking in [facility], she developed midsternal, intermittent chest pain. She characterized it as "achy" rated at 3/10 at worst; she is chest pain-free at time of admission. Patient's significant other (Fabiano) reports that it was worse than 3/10, and that patient had to go to the bathroom, then sit down in the car. Patient reports the chest pain was alleviated after sitting in the car. No radiation of chest pain up to the shoulders or down the arms bilaterally; no radiation to the back between the shoulder blades. Patient did not take any pain medicine prior to coming in the hospital. She reports that she took her regular morning medications; only recent change in medications was after the cardiac catheterization. Patient's daughter (Beth) is at the bedside and reports that the patient was "out of breath" when she was speaking to her over the phone. No recent falls or injuries to the chest wall. No prior history of SD. Patient is a current tobacco cigarette smoker; 1 PPD, however she has only had "2 cigarettes" since leaving the hospital. She denies any nicotine patch at time of admission. No recent alcohol use. Patient is hypertensive at 155/84 bradycardic at 49 bpm at time of admission; vitals otherwise stable. ED course: Aspirin 324 mg p.o. NSS 500 mL IV ROS: Patient endorses midsternal chest pain (resolved). Patient denies fever, chills, night sweats, dizziness, lightheadedness, headache, chest pain at time of admission, chest pain in the shoulders or arms, back pain, SOB, pleuritic CP, palpitations, cough, abdominal pain, N/V/D, changes in urinary/bowel habits, or numbness or tingling in the arms or legs. Discharge Exam Awake alert appropriate card exam is regular without murmurs lungs are clear Discharge Plan Discharge Items Patient Disposition: Home - Self-Care Reason For Visit: CHEST PAIN, elevated trop, recent stent Discharge Diagnosis: chest pain ' recent cardiac stent Activity: Resume your previous activity Non-emergency contact: Primary Care Provider and Dispensing Audiologist Call non-emergency contact if: your symptoms worsen Follow-up/Referrals: PCP,NO [Primary Care Provider] - Diet: Heart Healthy Addtl Attending Provider Instructions: please continue to have lifestyle modifications and see your primary care for follow up use nitro if you have recurrence of your chest pain, if you need to use one please contact your pcp office or if unable to return to ER Pending Studies at Discharge: No Stand-Alone Forms: My [facility] [employer], Smoking Cessation Medications and DC Order Prescriptions: New nitroglycerin 0.4 mg tablet, sublingual 0.4 mg sublingual Q5M PRN (Reason: chest pain) Qty: 1 2RF lisinopril [Zestril] 5 mg Tablet 5 mg PO QAM Qty: 30 4RF Continued acetaminophen [Tylenol Extra Strength] 500 mg Tablet 1,000 mg PO Q6H PRN (Reason: Pain) atorvastatin 40 mg Tablet 40 mg PO QAM Qty: 30 6RF clopidogrel 75 mg Tablet 75 mg PO QAM Qty: 30 6RF aspirin 81 mg Tablet,Delayed Release (Dr/Ec) 81 mg PO QAM Qty: 30 6RF metoprolol succinate 25 mg Tablet Extended Release 24 Hr 25 mg PO QAM Qty: 30 6RF Changed famotidine [Pepcid] 20 mg Tablet 20 mg PO BID Qty: 60 2RF Discharge Orders: Discharge Order (Routine); Ordered 12/17/23 Ordered By: Taz Sparrow Admission Data Admit Date/Time: 12/16/23 16:09 Attending Provider: Taz Sparrow Admit Provider: Luis Balderas Primary Care Provider: PCP,NO Other Providers: Luis Balderas; Derrek Bhatia Hospital Stay Data Consultations 12/16/23 15:38 ED Decision to Admit Stat 12/17/23 07:33 Consult Cardiology Routine Pending Results Patient Have Any Pending Studies at Discharge: No Discharge Instructions Given to Patient (Per Discharging Provider) please continue to have lifestyle modifications and see your primary care for follow up use nitro if you have recurrence of your chest pain, if you need to use one please contact your pcp office or if unable to return to ER Total Time Total Time Spent Total Time Spent (In Minutes): It required greater than 30 minutes to prepare this patient for discharge. Coding Level of Care Code 43703 INP/OBS DISCH >30 MIN Diagnoses Chest pain R07.9 Hypertension I10 Hypertension type: unspecified CAD (coronary artery disease) I25.10 Tobacco use Z72.0
[2023-12-17 17:08] VITALS: BP 144/75
--- NOTE | 2023-12-18 06:19 | Electrocardiogram Report ---
Test Reason : Blood Pressure : */* mmHG Vent. Rate : 57 BPM Atrial Rate : 57 BPM P-R Int : 132 ms QRS Dur : 94 ms QT Int : 442 ms P-R-T Axes : 51 42 19 degrees QTcB Int : 430 ms Sinus bradycardia Left ventricular hypertrophy with repolarization abnormality ( Kan product ) Abnormal ECG When compared with ECG of 13-Dec-2023 15:47, No significant change was found Confirmed by Derrek Bhatia ([id number]) on 12/18/2023 6:19:18 AM Referred By: Confirmed By: Derrek Bhatia
== END 2023-12-17 17:23 | disposition home or self-care (01) ==
LOC: ED 14:09 → EDINP 14:09 → SUATTDRO 16:09 → 2N 18:23